=== PATIENT | female | born 1990 | race Caucasian/White ===

== ENCOUNTER 2016-11-28 15:55 | Emergency (ER) | payer OTHER ==
[~2016-11-28] VITALS: Ht 170.2 cm; Wt 82.0 kg
[2016-11-28] MEDS ORDERED: HYDROCODONE/ACETAMINOPHEN 5-325 MG TABLET PO ONE (18:00)
[2016-11-28 18:39] VITALS: BP 110/72
== END 2016-11-28 18:49 | disposition home or self-care (01) ==
LOC: EMS 15:56
DX: S93.402A Sprain of unspecified ligament of left ankle, initial encounter (principal); F17.210 Nicotine dependence, cigarettes, uncomplicated; W10.9XXA Fall (on) (from) unspecified stairs and steps, initial encounter; Y93.89 Activity, other specified; Y92.89 Other specified places as the place of occurrence of the external cause; Y99.8 Other external cause status
CPT/HCPCS: 29515; 81025; 99284

== ENCOUNTER 2024-05-04 22:28 | Emergency (ER) | payer MEDICAID, OTHER ==
[~2024-05-04] VITALS: Ht 165.1 cm; Wt 91.0 kg
[2024-05-04 22:37] VITALS: BP 104/66; PULSE 100; RESP 20; TEMP 98
== END 2024-05-05 01:00 | disposition left against medical advice (07) ==
LOC: EMS 22:31
DX: M25.562 Pain in left knee (principal); Z53.21 Procedure and treatment not carried out due to patient leaving prior to being seen by health care provider
CPT/HCPCS: 73562-TC